=== PATIENT | male | born 1995 | race Caucasian/White ===

== ENCOUNTER 2017-01-18 07:07 | Emergency (ER) | payer SELFPAY ==
--- NOTE | 2017-02-17 21:14 | ER ---
ADMIT: 01/18/2017 RM/LOC: ER [facility] MR#: [id number] [facility]-[address] [id number] ASHLEY COLE [address] [place] [address] [address] [place] [address] Emergency Room Report SEX: M AGE: 21 : 1995 DATE: 01/18/2017 A 21-year-old with chest pain. See T-sheet for history and physical, was diagnosed with atypical chest pain and anxiety. I have given the prescription for Ativan p.o., encouraged to follow up with the primary doctor and resume his normal activities. His EKG was normal. Brian Lake MD/ remigio JOB #: [id number] CC: Brian Lake MD, Attending Physician
== END 2017-01-18 08:20 | disposition home or self-care (01) ==
LOC: ER 07:07
DX: R07.89 Other chest pain (principal); F41.9 Anxiety disorder, unspecified